=== PATIENT | male | born 1930 | race Caucasian/White ===

== ENCOUNTER → 2019-09-06 | Outpatient (CLI) | payer MEDICARE, BC | END | disposition home or self-care (01) | LOC: CFH 14:10 | PROVIDERS: ATTEND Internal Medicine | DX: R06.02 Shortness of breath (principal); R91.8 Other nonspecific abnormal finding of lung field; Z86.79 Personal history of other diseases of the circulatory system; Z82.49 Family history of ischemic heart disease and other diseases of the circulatory system; Z79.01 Long term (current) use of anticoagulants | CPT/HCPCS: 71250 ==

== ENCOUNTER 2019-09-11 11:59 | Emergency (ER) | payer MEDICARE, BC ==
[~2019-09-11] VITALS: Ht 175.3 cm; Wt 70.0 kg
--- NOTE | 2019-09-11 13:13 | NUR ---
lead neurodiagnostic technologist: pt currently in US, to be brought to ED room 25 when US complete
--- NOTE | 2019-09-11 13:25 | NUR ---
PT TO ROOM 25, XRAY AT BEDSIDE.
[2019-09-11] MEDS ORDERED: SODIUM CHLORIDE FLUSH 10ML SYR IVF ONE (13:30)
--- NOTE | 2019-09-11 13:33 | NUR ---
AT BEDSIDE FOR EXAM.
--- NOTE | 2019-09-11 13:55 | NUR ---
PT HERE WITH C/O LEFT CALF SWELLING AND KNEE PAIN X 1 WEEK. 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 PT AAO X 4, [place], DRESSED IN GOWN AND ATTACHED TO MONITOR. FAMILY AT BEDSIDE AND CALL LIGHT WITHINR REACH.
[2019-09-11 14:01] LABS: ALANINE AMINOTRANSFERASE 29 U/L (12-78); ALBUMIN 3.6 g/dL (3.4-5.0); ANION GAP 8 mmol/L (5-15); CALCIUM 9.2 mg/dL (8.5-10.1); CHLORIDE 110 mmol/L (98-107); CREATININE 1.39 mg/dL (0.7-1.3)
[2019-09-11 14:05] LABS: ALKALINE PHOSPHATASE 49 U/L (45-117); BILIRUBIN,TOTAL 0.7 mg/dL (0.2-1.0); TOTAL PROTEIN 7.7 g/dL (6.4-8.2); TROPONIN I < 0.015 ng/mL (0.000-0.045)
[2019-09-11 14:08] LABS: BASOPHILS # (AUTO) 0.04 x10^3/uL (0-0.1); BASOPHILS % (AUTO) 1 % (0-1); EOSINOPHILS # (AUTO) 0.12 x10^3/uL (0-0.4); EOSINOPHILS % (AUTO) 1 % (1-7); LYMPHOCYTES # (AUTO) 2.62 x10^3/uL (1-3.4); LYMPHOCYTES % (AUTO) 28 % (22-44); MD NO; MEAN CORPUSCULAR HEMOGLOBIN 29.3 pg (27.5-34.5); MEAN CORPUSCULAR HGB CONC 33.1 g/dL (33.2-36.2); MEAN CORPUSCULAR VOLUME 88.4 fL (81-97); MEAN PLATELET VOLUME 7.9 fL (7.4-10.4); MONOCYTES # (AUTO) 1.07 x10^3/uL (0.2-0.8); MONOCYTES % (AUTO) 12 % (2-9); NEUTROPHILS # (AUTO) 5.52 x10^3/uL (1.8-6.8); NEUTROPHILS % (AUTO) 59 % (42-75); PLATELET COUNT 248 x10^3/uL (130-400); RED CELL DISTRIBUTION WIDTH 15.4 % (9.4-14.8)
[2019-09-11 14:12] LABS: INTERNATIONAL NORMALIZED RATIO 2.36 (0.93-1.1)
[2019-09-11 14:28] VITALS: BP 117/51
--- NOTE | 2019-09-11 14:30 | NUR ---
break RN note: pt resting on gurney, pt a&o, resps even and unlabored. pt notes that he has pain to left groin, MD Gant informed. awaiting MD reassessment and dispo at this time. pt and family updated with POC.
--- NOTE | 2019-09-11 14:57 | NUR ---
report given back to primary ROSENDA Escudero.
--- NOTE | 2019-09-11 15:05 | NUR ---
UPDATES FROM PRIYA RN RECEIVED. PT ASSISTED IN REPOSITIONING IN [facility].
--- NOTE | 2019-09-11 15:44 | NUR ---
DR. PATRICK AT BEDSIDE.
--- NOTE | 2019-09-11 16:18 | NUR ---
Patient/Caregiver given discharge instructions and they have confirmed that they understand the instructions. Patient ambulatory with steady gait.
== END 2019-09-11 16:51 | disposition home or self-care (01) ==
LOC: ED 16:12
DX: R60.0 Localized edema (principal); Z86.73 Personal history of transient ischemic attack (TIA), and cerebral infarction without residual deficits
CPT/HCPCS: 36415; 71045; 80053; 84484; 85025; 85610; 93005; 99284

== ENCOUNTER 2019-10-11 18:04 | Inpatient (IN) | payer MEDICARE, OTHER ==
[~2019-10-11] VITALS: Ht 175.3 cm; Wt 70.7 kg
--- NOTE | 2019-10-11 19:53 | NUR ---
PIV PLACED FROM WHICH LABS WERE DRAWN PLACED ON MID LEVEL JAVA DEVELOPER DENIES CP/SOB +2DP PULSE TO AFFECTED LEG (HOWEVER +3 EDEMA)
[2019-10-11 20:04] LABS: BASOPHILS # (AUTO) 0.03 x10^3/uL (0-0.1); BASOPHILS % (AUTO) 0 % (0-1); EOSINOPHILS # (AUTO) 0.28 x10^3/uL (0-0.4); EOSINOPHILS % (AUTO) 4 % (1-7); LYMPHOCYTES # (AUTO) 2.05 x10^3/uL (1-3.4); LYMPHOCYTES % (AUTO) 29 % (22-44); MD NO; MEAN CORPUSCULAR HEMOGLOBIN 29.6 pg (27.5-34.5); MEAN CORPUSCULAR HGB CONC 32.5 g/dL (33.2-36.2); MEAN CORPUSCULAR VOLUME 90.9 fL (81-97); MONOCYTES % (AUTO) 16 % (2-9); NEUTROPHILS # (AUTO) 3.66 x10^3/uL (1.8-6.8); NEUTROPHILS % (AUTO) 51 % (42-75); PLATELET COUNT 233 x10^3/uL (130-400); RED BLOOD COUNT 4.71 x10^6/uL (4.38-5.82); RED CELL DISTRIBUTION WIDTH 15.9 % (9.4-14.8)
[2019-10-11 20:05] LABS: INTERNATIONAL NORMALIZED RATIO 2.24 (0.93-1.1); PROTHROMBIN TIME 22.8 Seconds (9.6-11.5)
[2019-10-11 20:08] LABS: ALANINE AMINOTRANSFERASE 24 U/L (12-78); ALBUMIN 3.4 g/dL (3.4-5.0); ANION GAP 7 mmol/L (5-15); CALCIUM 9.1 mg/dL (8.5-10.1); CHLORIDE 111 mmol/L (98-107); CREATININE 1.22 mg/dL (0.7-1.3)
[2019-10-11 20:11] LABS: ALKALINE PHOSPHATASE 52 U/L (45-117); BILIRUBIN,TOTAL 0.5 mg/dL (0.2-1.0); TOTAL PROTEIN 7.6 g/dL (6.4-8.2)
[2019-10-11] MEDS ORDERED: WARF4TAB65 PO (20:40)
[2019-10-11] MEDS ORDERED: OLME20TA17 PO (20:40)
[2019-10-11] MEDS ORDERED: RAMI5CAP57 PO (20:40)
[2019-10-11] MEDS ORDERED: WARF-36 PO (20:40)
[2019-10-11] MEDS ORDERED: LEVO75TA PO (20:40)
[2019-10-11] MEDS ORDERED: METO-264 PO (20:40)
--- NOTE | 2019-10-11 21:20 | NUR ---
NO CHANGE IN CMS EXAM TO AFFECTED FOOT VSS ON SLAT BASKET MAKER PROVIDER TO BEDSIDE: PLAN TO ADD LOVENOX, ADMIT FOR CONTINUED COAGULOPATHY WORKUP/MAYBE IVF FILTER ER PROVIDER ASKED TO ORDER HOME BENICAR/COUMADIN (DEFERRING TO HOSPITALIST) DINNER TRAY ORDERED
[2019-10-11] MEDS ORDERED: ENOXAPARIN 80 MG/0.8 ML SQ SCH (21:30)
--- NOTE | 2019-10-11 21:36 | NUR ---
BRIEN Dove (HOSPITALIST) AT BEDSIDE
[2019-10-11] MEDS ORDERED: ONDANSETRON ODT 4 MG PO PRN (22:00)
[2019-10-11] MEDS ORDERED: POLYETHYLENE GLYCOL 17 GM PACKET PO PRN (22:00)
[2019-10-11] MEDS: SODIUM CHLORIDE FLUSH 10ML SYR IVF SCH (22:00)
[2019-10-11] MEDS: METOPROLOL SUCCINATE 50 MG TAB.ER.24H PO SCH (22:00)
[2019-10-11] MEDS ORDERED: RAMIPRIL 5 MG CAP PO SCH (22:00)
[2019-10-11] MEDS: LOSARTAN 50MG TABLET PO SCH (22:00)
[2019-10-11] MEDS ORDERED: ACETAMINOPHEN 325 MG TABLET PO PRN (22:00)
[2019-10-11] MEDS ORDERED: BISACODYL 10 MG SUPP PR PRN (22:00)
--- NOTE | 2019-10-11 22:13 | NUR ---
WEIGHT RECHECKED WITH BEDSCALE (PRIOR WEIGHT ESTIMATED) PHARMACY MADE AWARE- SAME DOSE OF LOVENOX
--- NOTE | 2019-10-11 22:29 | NUR ---
UP TO RESTROOM TO VOID . AMBULATES AT BASELINE ABILITY SLOW SHUFFLW W/ CAN W 1 PERSON ASSIST VSS ON VCARDIAC MONITOR MEDICATION PLAN CLARIFIED: TO HOLD WARFARIN/ DOSE & ADMIN LOVENOX SO TO BRIDGE TO SEPERATE ANTICOAGULANT
[2019-10-11] MEDS ORDERED: ENOXAPARIN 80 MG/0.8 ML ONE (22:36)
--- NOTE | 2019-10-11 23:06 | NUR ---
REPORT RECEIVED FROM ROSENDA HERNANDEZ. PLAN OF CARE DISCUSSED.
--- NOTE | 2019-10-11 23:07 | NUR ---
: FRANCISCO J [phone]
--- NOTE | 2019-10-11 23:41 | NUR ---
PATIENT MEDICATED PER EMAR, TOLERATED WELL. ABLE TO SWALLOW. CALL LIGHT IN REACH, DENIES NEEDS AT THIS TIME.
--- NOTE | 2019-10-12 00:26 | NUR ---
SCD APPLIED TO RIGHT LEG
--- NOTE | 2019-10-12 00:43 | NUR ---
REPORT GIVEN TO ROSENDA GONZALEZ. PLAN OF CARE DISCUSSED.
[2019-10-12 01:32] VITALS: BP 151/80
[2019-10-12] MEDS: LEVOTHYROXINE 75 MCG TABLET PO SCH (05:16)
[2019-10-12 06:07] LABS: BASOPHILS # (AUTO) 0.05 x10^3/uL (0-0.1); BASOPHILS % (AUTO) 1 % (0-1); EOSINOPHILS # (AUTO) 0.37 x10^3/uL (0-0.4); EOSINOPHILS % (AUTO) 5 % (1-7); LYMPHOCYTES # (AUTO) 2.86 x10^3/uL (1-3.4); LYMPHOCYTES % (AUTO) 38 % (22-44); MD NO; MEAN CORPUSCULAR HEMOGLOBIN 29.2 pg (27.5-34.5); MEAN CORPUSCULAR HGB CONC 32.2 g/dL (33.2-36.2); MEAN CORPUSCULAR VOLUME 90.7 fL (81-97); MEAN PLATELET VOLUME 7.8 fL (7.4-10.4); MONOCYTES # (AUTO) 1.04 x10^3/uL (0.2-0.8); MONOCYTES % (AUTO) 14 % (2-9); NEUTROPHILS # (AUTO) 3.18 x10^3/uL (1.8-6.8); NEUTROPHILS % (AUTO) 43 % (42-75); PLATELET COUNT 211 x10^3/uL (130-400); RED BLOOD COUNT 4.38 x10^6/uL (4.38-5.82); RED CELL DISTRIBUTION WIDTH 15.8 % (9.4-14.8)
[2019-10-12 06:11] LABS: ANION GAP 7 mmol/L (5-15); CALCIUM 8.8 mg/dL (8.5-10.1); CHLORIDE 110 mmol/L (98-107)
[2019-10-12 06:16] LABS: ALANINE AMINOTRANSFERASE 24 U/L (12-78); ALKALINE PHOSPHATASE 47 U/L (45-117); BILIRUBIN,TOTAL 0.9 mg/dL (0.2-1.0); CREATININE 1.19 mg/dL (0.7-1.3); TOTAL PROTEIN 6.6 g/dL (6.4-8.2)
[2019-10-12 06:38] VITALS: BP 123/64
[2019-10-12] MEDS: SENNA/DOCUSATE TABLET PO SCH (08:19)
[2019-10-12] MEDS: METOPROLOL SUCCINATE 50 MG TAB.ER.24H PO SCH ×2 (08:19→18:26)
[2019-10-12] MEDS: SODIUM CHLORIDE FLUSH 10ML SYR IVF SCH ×2 (08:20→20:49)
[2019-10-12] MEDS: ENOXAPARIN 80 MG/0.8 ML SQ SCH ×2 (11:20→22:42)
[2019-10-12 12:06] VITALS: BP 138/63
[2019-10-12 19:11] LABS: MICROSCOPIC AUTO
[2019-10-12 19:13] LABS: CULTURE INDICATED? YES
[2019-10-12 20:46] VITALS: BP 141/61
[2019-10-12] MEDS: LOSARTAN 50MG TABLET PO SCH (20:49)
[2019-10-13 02:39] VITALS: BP 120/65
[2019-10-13] MEDS: LEVOTHYROXINE 75 MCG TABLET PO SCH (06:28)
[2019-10-13 08:28] VITALS: BP 159/62
[2019-10-13] MEDS: SODIUM CHLORIDE FLUSH 10ML SYR IVF SCH ×2 (08:39→20:06)
[2019-10-13] MEDS: SENNA/DOCUSATE TABLET PO SCH (08:39)
[2019-10-13] MEDS: METOPROLOL SUCCINATE 50 MG TAB.ER.24H PO SCH ×2 (08:39→20:07)
[2019-10-13] MEDS: ENOXAPARIN 80 MG/0.8 ML SQ SCH (11:08)
[2019-10-13 13:45] VITALS: BP 120/56
[2019-10-13] MEDS: APIXABAN 5 MG TABLET PO SCH (20:07)
[2019-10-13] MEDS: LOSARTAN 50MG TABLET PO SCH (20:07)
[2019-10-13 20:13] VITALS: BP 159/69
[2019-10-14 03:13] VITALS: BP 161/78
[2019-10-14] MEDS: LEVOTHYROXINE 75 MCG TABLET PO SCH (06:30)
[2019-10-14 07:09] VITALS: BP 154/69
[2019-10-14] MEDS: SENNA/DOCUSATE TABLET PO SCH (09:00)
[2019-10-14 09:10] VITALS: BP 155/71
[2019-10-14] MEDS: METOPROLOL SUCCINATE 50 MG TAB.ER.24H PO SCH (09:12)
[2019-10-14] MEDS: APIXABAN 5 MG TABLET PO SCH (09:12)
[2019-10-14] MEDS: SODIUM CHLORIDE FLUSH 10ML SYR IVF SCH (09:12)
[2019-10-14] MEDS ORDERED: APIX5TAB PO ×2 (11:27)
== END 2019-10-14 14:30 | disposition home health service (06) | DRG 300 ==
LOC: ED 19:20 → EDIP 21:39 → 4NE 10-12 01:00
PROVIDERS: ADMIT Internal Medicine; ATTEND Internal Medicine
DX: I82.412 Acute embolism and thrombosis of left femoral vein (principal); I69.354 Hemiplegia and hemiparesis following cerebral infarction affecting left non-dominant side; E03.9 Hypothyroidism, unspecified; E78.5 Hyperlipidemia, unspecified; I10 Essential (primary) hypertension; I82.502 Chronic embolism and thrombosis of unspecified deep veins of left lower extremity; Z79.01 Long term (current) use of anticoagulants; Z82.49 Family history of ischemic heart disease and other diseases of the circulatory system; Z85.828 Personal history of other malignant neoplasm of skin; Z86.711 Personal history of pulmonary embolism; Z90.49 Acquired absence of other specified parts of digestive tract
CPT/HCPCS: 36415; 80053; 81001; 85025; 85610; 87086; G0378; J1650

== ENCOUNTER → 2019-10-11 | Outpatient (CLI) | payer MEDICARE, OTHER ==
[~2019-10-11] MED LIST: APIX5TAB PO; LEVO75TA PO; METO-264 PO; OLME20TA17 PO; RAMI5CAP57 PO; WARF-36 PO; WARF4TAB65 PO
== END | disposition home or self-care (01) ==
LOC: CVU 15:38
PROVIDERS: ATTEND Family Medicine
DX: I82.512 Chronic embolism and thrombosis of left femoral vein (principal); I82.462 Acute embolism and thrombosis of left calf muscular vein
CPT/HCPCS: 93971

== ENCOUNTER 2019-10-16 15:03 | Emergency (ER) | payer MEDICARE, OTHER ==
[~2019-10-16] VITALS: Ht 175.3 cm; Wt 70.0 kg
[2019-10-16 16:00] LABS: BASOPHILS # (AUTO) 0.07 x10^3/uL (0-0.1); BASOPHILS % (AUTO) 1 % (0-1); EOSINOPHILS # (AUTO) 0.42 x10^3/uL (0-0.4); EOSINOPHILS % (AUTO) 5 % (1-7); LYMPHOCYTES # (AUTO) 2.51 x10^3/uL (1-3.4); LYMPHOCYTES % (AUTO) 31 % (22-44); MD NO; MEAN CORPUSCULAR HEMOGLOBIN 29.6 pg (27.5-34.5); MEAN CORPUSCULAR HGB CONC 32.4 g/dL (33.2-36.2); MEAN CORPUSCULAR VOLUME 91.5 fL (81-97); MEAN PLATELET VOLUME 7.9 fL (7.4-10.4); MONOCYTES # (AUTO) 1.11 x10^3/uL (0.2-0.8); MONOCYTES % (AUTO) 14 % (2-9); NEUTROPHILS # (AUTO) 4.05 x10^3/uL (1.8-6.8); NEUTROPHILS % (AUTO) 50 % (42-75); PLATELET COUNT 228 x10^3/uL (130-400); RED CELL DISTRIBUTION WIDTH 16.1 % (9.4-14.8)
--- NOTE | 2019-10-16 16:08 | NUR ---
PATIENT PLACED IN GOWN, VITAL SIGNS STABLE. EKG WILL BE OBTAINED. ULTRASOUND AT BEDSIDE WITH PATIENT. PATIENT TOLERATING PROCEDURE WELL. PATIENT STATED THAT HE IS CURRENTLY BACK TO HIS BASELINE AT TIME OF INTERVIEW. WILL CONTINUE TO MONITOR PATIENT. CALL LIGHT WITHIN REACH, BED IN LOWEST LOCKED POSITION. FAMILY AT BEDSIDE.
[2019-10-16 16:11] LABS: ALBUMIN 3.4 g/dL (3.4-5.0); ANION GAP 8 mmol/L (5-15); CALCIUM 9.1 mg/dL (8.5-10.1); CHLORIDE 108 mmol/L (98-107); CREATININE 1.37 mg/dL (0.7-1.3)
--- NOTE | 2019-10-16 17:25 | NUR ---
dr thomas spoke with dr recinos
--- NOTE | 2019-10-16 17:31 | NUR ---
ERP WAS IN FOR RECHECK.
[2019-10-16 17:45] VITALS: BP 161/65
--- NOTE | 2019-10-16 17:58 | NUR ---
D/C INSTRUCTIONS & F/U APPT RV'WD WITH PT AND FAMILY, THEY VERBALIZE UNDERSTANDING. ASSISTED PT OUT OF ED VIA WC WITH FAMILY.
== END 2019-10-16 18:00 | disposition home or self-care (01) ==
LOC: ED 17:02
DX: G45.9 Transient cerebral ischemic attack, unspecified (principal); R42 Dizziness and giddiness; I10 Essential (primary) hypertension; Z86.73 Personal history of transient ischemic attack (TIA), and cerebral infarction without residual deficits; Z79.01 Long term (current) use of anticoagulants
CPT/HCPCS: 36415; 70450; 71045; 80048; 82040; 85025; 93005; 93880; 99284

== ENCOUNTER → 2019-12-19 | Outpatient (CLI) | payer MEDICARE, OTHER | END | disposition home or self-care (01) | LOC: RAD 16:39 | PROVIDERS: ATTEND Family Medicine | DX: I82.412 Acute embolism and thrombosis of left femoral vein (principal); R60.9 Edema, unspecified ==

== ENCOUNTER 2020-02-22 08:21 | Emergency (ER) | payer MEDICARE, OTHER ==
[~2020-02-22] VITALS: Ht 175.3 cm; Wt 72.7 kg
--- NOTE | 2020-02-22 08:33 | NUR ---
PT PRESENTS TO [facility] STATES THAT HE THINKS HE HAD A TIA THIS MORNING. PT WAS UNABLE TO SPEAK FOR APPROX 10MIN. NO OTHER SYMPTOMS, JUST THE SPEECH ISSUE. 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 PT HAD TIA IN 09/2019. PT CURRENTLY ON XERALTO. NO CURRENT S/S OF TIA NOTED IN TRIAGE.
[2020-02-22] MEDS ORDERED: TAMS-11 PO (08:59)
--- NOTE | 2020-02-22 09:02 | NUR ---
PT IN BED, NO SIGNS OF DISTRESS, A&OX4, ABLE TO INFORM RN OF WHY HE PRESENTED TO ED. NO SIGNS OF DISTRESS. AT BEDSIDE.
[2020-02-22] MEDS ORDERED: RIVA20TA PO (09:04)
[2020-02-22] MEDS ORDERED: SODIUM CHLORIDE FLUSH 10ML SYR IVF ONE (09:30)
--- NOTE | 2020-02-22 09:42 | NUR ---
PT TO IMAGING
[2020-02-22 10:10] LABS: CULTURE INDICATED? NO; MICROSCOPIC NOT IND
[2020-02-22 10:24] LABS: BASOPHILS # (AUTO) 0.03 x10^3/uL (0-0.1); BASOPHILS % (AUTO) 0 % (0-1); EOSINOPHILS # (AUTO) 0.07 x10^3/uL (0-0.4); EOSINOPHILS % (AUTO) 1 % (1-7); LYMPHOCYTES # (AUTO) 1.15 x10^3/uL (1-3.4); LYMPHOCYTES % (AUTO) 16 % (22-44); MD NO; MEAN PLATELET VOLUME 7.7 fL (7.4-10.4); MONOCYTES # (AUTO) 0.71 x10^3/uL (0.2-0.8); MONOCYTES % (AUTO) 10 % (2-9); NEUTROPHILS % (AUTO) 72 % (42-75); PLATELET COUNT 202 x10^3/uL (130-400); RED BLOOD COUNT 4.93 x10^6/uL (4.38-5.82); RED CELL DISTRIBUTION WIDTH 15.9 % (9.4-14.8)
[2020-02-22 10:26] LABS: ALANINE AMINOTRANSFERASE 21 U/L (12-78); ALBUMIN 3.1 g/dL (3.4-5.0); ANION GAP 7 mmol/L (5-15); CALCIUM 8.9 mg/dL (8.5-10.1); CHLORIDE 111 mmol/L (98-107); CREATININE 1.38 mg/dL (0.7-1.3)
[2020-02-22 10:29] LABS: ALKALINE PHOSPHATASE 52 U/L (45-117); BILIRUBIN,TOTAL 0.9 mg/dL (0.2-1.0); TOTAL PROTEIN 7.2 g/dL (6.4-8.2)
[2020-02-22 11:07] VITALS: BP 140/77
== END 2020-02-22 11:09 | disposition home or self-care (01) ==
LOC: ED 09:05
DX: G45.9 Transient cerebral ischemic attack, unspecified (principal); I10 Essential (primary) hypertension; Z86.718 Personal history of other venous thrombosis and embolism
CPT/HCPCS: 36415; 70450; 80053; 81003; 85025; 93005; 99285